=== PATIENT | female | born 1995 | race Caucasian/White ===

== ENCOUNTER 2020-11-15 07:19 | Emergency (ER) | payer BC ==
[~2020-11-15] VITALS: Ht 175.3 cm; Wt 90.9 kg
[2020-11-15] MEDS ORDERED: ESTR1TAB PO (07:35)
[2020-11-15] MEDS ORDERED: LORA1TAB4 PO (07:37)
[2020-11-15] MEDS ORDERED: LEXA1TAB PO (07:37)
[2020-11-15] MEDS ORDERED: LORA2CON5 PO (07:37)
--- NOTE | 2020-11-15 09:08 | REP ---
INDICATION: right arm pain r/o dvt COMPARISON: None. TECHNIQUE: Canales scale and color Doppler evaluation right upper extremity using linear high frequency transducer. FINDINGS: Ultrasound examination of the right upper extremity demonstrates occlusive thrombus in the right subclavian/proximal axillary vein. Brachial, basilic, and cephalic veins are patent and normal. IMPRESSION: Occlusive thrombus in the right subclavian/proximal axillary vein. <Electronically signed by Itz Peguero > 11/15/20 0917
[2020-11-15] MEDS ORDERED: NS 1,000 ML IV ONE (09:30)
[2020-11-15 09:56] LABS: BASO % 0.7 % (0.0-1.0); EOS # 0.3 10^3/uL (0.0-0.5); HEMATOCRIT 41.9 % (36.0-47.0); HEMOGLOBIN 13.9 g/dl (12.0-15.5); LYMPH # 1.9 10^3/uL (1.5-5.0); MEAN CORPUSCULAR HGB CONC 33.2 g/dl (32.0-36.5); MEAN CORPUSCULAR VOLUME 96.5 fl (80.0-96.0); MONO # 0.4 10^3/uL (0.0-0.8); MONO % 6.9 % (2.0-8.0); NEUTROPHILS # 3.3 10^3/uL (1.5-8.5); NEUTROPHILS % 55.2 % (36.0-66.0); PLATELET COUNT, AUTOMATED 297 10^3/uL (150-450); RED BLOOD COUNT 4.34 10^6/uL (4.00-5.40)
[2020-11-15] MEDS ORDERED: ISOVUE-370 76% 100ML VIAL As Ordered ONE (09:59)
[2020-11-15 10:05] LABS: INR 0.92; PROTHROMBIN TIME 12.6 SECONDS (12.5-14.3)
[2020-11-15 10:06] LABS: PARTIAL THROMBOPLASTIN TIME 27.4 SECONDS (24.2-38.5)
[2020-11-15] MEDS ORDERED: LORazepam 1 MG TAB PO STA (10:14)
--- NOTE | 2020-11-15 10:47 | REP ---
INDICATION: dvt RUE, right chest/breast discomfort r/o PE COMPARISON: None. TECHNIQUE: Axial contrast enhanced images from the thoracic inlet to the upper abdomen using pulmonary embolus technique with multiplanar re-formations. 75 ml Isovue 370 intravenous contrast material administered without complication. This CT examination was performed using the following dose reduction techniques: Automated exposure control, adjustment of mA and/or kv according to the patient's size, and use of iterative reconstruction technique. FINDINGS: Satisfactory enhancement of the pulmonary vasculature is achieved and no filling defects are identified to suggest pulmonary embolus. Further evaluation of the mediastinum demonstrates normal thoracic aorta, heart and pericardium. The bilateral lung faustin are well aerated and without consolidation, pleural effusion or pneumothorax. Tracheobronchial tree is patent. No nodule or mass lesion is identified. No adenopathy noted. Surrounding musculoskeletal structures intact bilateral mammoplasty. IMPRESSION: No evidence for pulmonary embolus. No acute mediastinal or pleural parenchymal process. <Electronically signed by Itz Peguero > 11/15/20 1045
[2020-11-15] MEDS ORDERED: ELIQ5TAB PO (11:45)
[2020-11-15] MEDS ORDERED: ENOXAPARIN 100MG/1ML SYRINGE (J1650 PER 10MG) SC ONE (11:45)
[2020-11-15 12:11] VITALS: BP 169/87
== END 2020-11-15 12:22 | disposition home or self-care (01) ==
LOC: M ED 07:19
DX: I80.8 Phlebitis and thrombophlebitis of other sites (principal); F41.9 Anxiety disorder, unspecified; Z79.3 Long term (current) use of hormonal contraceptives; Z79.899 Other long term (current) drug therapy
CPT/HCPCS: 71275; 80047; 84702; 85025; 85610; 85730; 93971; 96360; 96372; 99284; J1650; Q9967

== ENCOUNTER 2020-11-30 18:50 | Emergency (ER) | payer BC ==
[~2020-11-30] VITALS: Ht 175.3 cm; Wt 91.9 kg
[~2020-11-30 18:50] MED LIST: ELIQ5TAB PO; ESTR1TAB PO; LEXA1TAB PO; LORA1TAB4 PO; LORA2CON5 PO
[2020-11-30 21:25] LABS: BASO % 0.4 % (0.0-1.0); EOS # 0.3 10^3/uL (0.0-0.5); EOS % 3.5 % (0.0-3.0); HEMATOCRIT 41.7 % (36.0-47.0); HEMOGLOBIN 13.9 g/dl (12.0-15.5); LYMPH # 2.6 10^3/uL (1.5-5.0); LYMPH % 27.8 % (24.0-44.0); MEAN CORPUSCULAR HEMOGLOBIN 31.9 pg (27.0-33.0); MEAN CORPUSCULAR HGB CONC 33.3 g/dl (32.0-36.5); MEAN CORPUSCULAR VOLUME 95.6 fl (80.0-96.0); MONO # 0.7 10^3/uL (0.0-0.8); MONO % 7.2 % (2.0-8.0); NEUTROPHILS # 5.8 10^3/uL (1.5-8.5); NEUTROPHILS % 60.8 % (36.0-66.0); PLATELET COUNT, AUTOMATED 322 10^3/uL (150-450); RED BLOOD COUNT 4.36 10^6/uL (4.00-5.40); WHITE BLOOD COUNT 9.5 10^3/uL (4.0-10.0)
[2020-11-30 21:28] LABS: BLOOD UREA NITROGEN 12 MG/DL (7-18); CALCIUM LEVEL 9.3 MG/DL (8.5-10.1); CARBON DIOXIDE LEVEL 28 MEQ/L (21-32); CHLORIDE LEVEL 104 MEQ/L (98-107); CREATININE FOR GFR 0.88 MG/DL (0.55-1.30); GLOMERULAR FILTRATION RATE > 60.0 (>60); GLUCOSE, FASTING 83 MG/DL (70-100); POTASSIUM SERUM 3.9 MEQ/L (3.5-5.1); SODIUM LEVEL 140 MEQ/L (136-145)
[2020-11-30] MEDS ORDERED: ISOVUE-370 76% 100ML VIAL As Ordered ONE (22:48)
--- NOTE | 2020-12-01 00:06 | REPVR ---
PROCEDURE INFORMATION: Exam: CT Abdomen And Pelvis With Contrast Exam date and time: 11/30/2020 11:19 PM Age: 25 years old Clinical indication: Abdominal pain; Localized; Right; Prior surgery; Additional info: Chest pain, right sided abd pain, recent dx of dvt. TECHNIQUE: Imaging protocol: Computed tomography of the abdomen and pelvis with contrast. Radiation optimization: All CT scans at this facility use at least one of these dose optimization techniques: automated exposure control; mA and/or kV adjustment per patient size (includes targeted exams where dose is matched to clinical indication); or iterative reconstruction. Contrast material: ISOVUE 370; Contrast volume: 100 ml; Contrast route: INTRAVENOUS (IV); COMPARISON: No relevant prior studies available. FINDINGS: Lungs: No suspicious mass or airspace process in the visualized lung bases. Liver: Liver appears normal with no focal abnormality. Gallbladder and bile ducts: Gallbladder is present and shows no evidence of gallstone. Pancreas: Pancreas appears normal. No focal mass or peripancreatic inflammation. Spleen: Spleen appears homogeneous without focal mass. Adrenal glands: Adrenal glands are normal in appearance. Kidneys and ureters: Kidneys appear normal, with no stone, solid mass or hydronephrosis. Stomach and bowel: No evidence of small bowel obstruction. Terminal ileum has normal appearance. No evidence of acute diverticulitis. Appendix: Normal caliber appendix is identified, with no adjacent inflammation. Intraperitoneal space: No pneumoperitoneum. Vasculature: No aortic aneurysm. Main portal and splenic veins enhance normally. Lymph nodes: No enlarged lymph nodes. Urinary bladder: Urinary bladder appears normal. Reproductive: Right ovarian cyst measuring 3.4 cm is present. Bones/joints: Bony structures show no acute fracture or destructive process. Soft tissues: Bilateral breast implants are present. No effacement of normal fat planes in the ischiorectal fossa. IMPRESSION: 1. Right ovarian cyst measuring 3.4 cm. No adjacent free fluid. 2. Normal appearing appendix and no right-sided urinary tract abnormality. Electronically signed by: Jordan Ruvalcaba On 12/01/2020 00:05:42 AM
--- NOTE | 2020-12-01 00:08 | REPVR ---
PROCEDURE INFORMATION: Exam: CTA Chest With Contrast Exam date and time: 11/30/2020 11:19 PM Age: 25 years old Clinical indication: Pain; Right-sided; Additional info: Chest pain, right sided abd pain, recent dx of dvt. TECHNIQUE: Imaging protocol: Computed tomographic angiography of the chest with contrast. 3D rendering (Not supervised by radiologist): MIP and/or 3D reconstructed images were created by the technologist. Radiation optimization: All CT scans at this facility use at least one of these dose optimization techniques: automated exposure control; mA and/or kV adjustment per patient size (includes targeted exams where dose is matched to clinical indication); or iterative reconstruction. Contrast material: ISOVUE 370; Contrast volume: 100 ml; Contrast route: INTRAVENOUS (IV); COMPARISON: CT ANGIO CHEST 11/15/2020 10:33 AM FINDINGS: Pulmonary arteries: No focal pulmonary artery filling defect to suggest acute pulmonary embolus. Aorta: Ascending aorta measures 4 cm, unchanged since the prior exam. Descending aorta is normal in caliber. No evidence of aortic dissection. Lungs: Pulmonary vascular/interstitial pattern does not suggest active pulmonary edema. No suspicious lung mass or air space process. No central endobronchial lesion. Pleural spaces: No pleural effusion or pneumothorax. Heart: No overt cardiac enlargement or abnormal volume of pericardial fluid. Mediastinal space: Residual thymic tissue is present in the anterior mediastinum. Lymph nodes: No enlarged mediastinal lymph nodes. Bones/joints: Bony structures show no acute fracture or destructive process. Soft tissues: No asymmetric abnormality of the extrathoracic soft tissues. Bilateral breast implants are present. IMPRESSION: 1. No evidence of acute pulmonary embolus. 2. No other acute or concerning focal intrathoracic abnormality. 3. Unchanged mild ectasia of the ascending thoracic aorta. Electronically signed by: Jordan Ruvalcaba On 12/01/2020 00:07:44 AM
[2020-12-01 02:07] VITALS: BP 110/59
== END 2020-12-01 02:13 | disposition home or self-care (01) ==
LOC: M ED 18:50
DX: R07.89 Other chest pain (principal); N83.201 Unspecified ovarian cyst, right side; Z79.899 Other long term (current) drug therapy; Z79.01 Long term (current) use of anticoagulants; F12.20 Cannabis dependence, uncomplicated
CPT/HCPCS: 36415; 71275; 74177; 80048; 84702; 85025; 99284; Q9967